=== PATIENT | male | born 1995 | race Caucasian/White ===

== ENCOUNTER 2018-03-23 07:30 | Emergency (ER) | payer OTHER ==
[2018-03-23] MEDS: NS 1,000 ML IV (08:10)
[2018-03-23] MEDS: MORPHINE 4 MG/ML 1ML VIAL/SYRINGE (J2270) IV ×2 (08:11→08:46)
[2018-03-23 08:17] LABS: BASO % 0.5 % (0.0-1.0); EOS % 0.3 % (0.0-3.0); HEMATOCRIT 48.3 % (42.0-52.0); HEMOGLOBIN 16.8 g/dl (13.5-17.5); IMMATURE GRANULOCYTE % 0.3 % (0-3.0); LYMPH # 1.6 10^3/uL (1.5-6.5); LYMPH % 24.8 % (24.0-44.0); MEAN CORPUSCULAR HGB CONC 34.8 g/dl (32.0-36.5); MEAN CORPUSCULAR VOLUME 83.4 fl (80.0-96.0); MONO # 0.4 10^3/uL (0.0-0.8); MONO % 6.5 % (0.0-5.0); NEUTROPHILS # 4.4 10^3/uL (1.8-7.7); NEUTROPHILS % 67.6 % (36.0-66.0); PLATELET COUNT, AUTOMATED 242 10^3/uL (150-450); RED BLOOD COUNT 5.79 10^6/uL (4.30-6.10); RED CELL DISTRIBUTION WIDTH 12.3 % (11.5-14.5); WHITE BLOOD COUNT 6.5 10^3/uL (4.0-10.0)
[2018-03-23 08:35] LABS: ALBUMIN 4.2 GM/DL (3.2-5.2); ALBUMIN/GLOBULIN RATIO 1.24 (1.00-1.93); ALKALINE PHOSPHATASE 72 U/L (45-117); ALT/SGPT 27 U/L (12-78); AMYLASE 38 U/L (25-115); ANION GAP 9 MEQ/L (8-16); AST/SGOT 20 U/L (7-37); BILIRUBIN,DIRECT < 0.1 MG/DL (0.0-0.2); BILIRUBIN,TOTAL 0.3 MG/DL (0.2-1.0); BLOOD UREA NITROGEN 13 MG/DL (7-18); CALCIUM LEVEL 9.8 MG/DL (8.5-10.1); CARBON DIOXIDE LEVEL 27 MEQ/L (21-32); CHLORIDE LEVEL 104 MEQ/L (98-107); CREATININE FOR GFR 1.38 MG/DL (0.70-1.30); GLOMERULAR FILTRATION RATE > 60.0 (>60); GLUCOSE, FASTING 90 MG/DL (70-100); LIPASE 91 U/L (73-393); POTASSIUM SERUM 4.3 MEQ/L (3.5-5.1); SODIUM LEVEL 140 MEQ/L (136-145); TOTAL PROTEIN 7.6 GM/DL (6.4-8.2)
[2018-03-23] MEDS ORDERED: ISOVUE-370 76% 100ML VIAL (Q9967) As Ordered (09:32)
[2018-03-23] MEDS: KETOROLAC 30 MG/ML VIAL (J1885) IV (10:37)
== END 2018-03-23 10:49 | disposition home or self-care (01) ==
LOC: M ED 07:30
DX: R10.11 Right upper quadrant pain (principal); G89.18 Other acute postprocedural pain; R00.0 Tachycardia, unspecified
CPT/HCPCS: J2270

== ENCOUNTER → 2018-04-06 | Outpatient (CLI) | payer OTHER | LOC: M RAD 07:01 | DX: M26.623 Arthralgia of bilateral temporomandibular joint (principal) | CPT/HCPCS: 70480 ==

== ENCOUNTER 2018-10-03 19:29 | Emergency (ER) | payer OTHER ==
[~2018-10-03] VITALS: Ht 177.8 cm; Wt 71.7 kg
[~2018-10-03 19:29] MED LIST: NAPR-837 PO
--- NOTE | 2018-10-03 21:57 | REPVR ---
EXAM: CT Maxillofacial Without Contrast EXAM DATE/TIME: 10/03/2018 8:44 PM CLINICAL HISTORY: 23 years old, male; Injury or trauma; Fall; Initial encounter; Concussion /head injury; Without loss of consciousness; Additional info: Jaw wired shut, fell and hit face TECHNIQUE: Imaging protocol: Axial computed tomography images of the face without intravenous contrast. Coronal and sagittal reformatted images were created and reviewed. Radiation optimization: All CT scans at this facility use at least one of these dose optimization techniques: automated exposure control; mA and/or kV adjustment per patient size (includes targeted exams where dose is matched to clinical indication); or iterative reconstruction. COMPARISON: No relevant prior studies available. FINDINGS: Orbits: No acute intraorbital abnormality. Globes intact. Sinuses: Normal. No air-fluid levels. Bones/joints: Mildly displaced fracture of the right mandibular ramus. Soft tissues: Mild soft tissue swelling at the fracture site. IMPRESSION: Mildly displaced fracture of the right mandibular ramus. Electronically signed by: Dakota Boucher On 10/03/2018 21:56:49 PM
[2018-10-03] MEDS ORDERED: ONDANSETRON 4MG/2ML VIAL (J2405) IV ONE (22:00)
[2018-10-03] MEDS ORDERED: HYDR1SOL PO (22:10)
[2018-10-03] MEDS: MORPHINE 4 MG/ML 1ML VIAL/SYRINGE (J2270) IV PRN ×2 (22:34→23:35)
[2018-10-03] MEDS ORDERED: KETOROLAC 30 MG/ML VIAL (J1885) IV ONE (23:15)
[2018-10-04 00:52] VITALS: BP 124/66
== END 2018-10-04 00:54 | disposition home or self-care (01) ==
LOC: M ED 19:29
DX: R68.84 Jaw pain (principal); S02.641A Fracture of ramus of right mandible, initial encounter for closed fracture; W10.9XXA Fall (on) (from) unspecified stairs and steps, initial encounter; Y92.9 Unspecified place or not applicable; Y93.9 Activity, unspecified; Y99.9 Unspecified external cause status
CPT/HCPCS: 70486; 96374; 96375; 96376; 99284; J1885; J2270; J2405

== ENCOUNTER → 2019-02-07 | Outpatient (REF) | payer OTHER ==
[~2019-02-07] MED LIST changes: +HYDR1SOL PO
[2019-02-07 14:10] LABS: SEMEN APPEARANCE OPAQUE (OPAQUE); SEMEN VISCOSITY LIQUID (LIQUID); SEMEN VOLUME 1.7 ml (2.0-5.0); SPERM CONCENTRATION 41.1 M/ml (>=15.0); WBC CONCENTRATION <=1 M/ml (<=1 M/ml)
== END ==
LOC: M LAB REF 13:41
PROVIDERS: ATTEND Obstetrics & Gynecology
DX: Z31.41 Encounter for fertility testing (principal)

== ENCOUNTER 2019-03-16 06:17 | Emergency (ER) | payer OTHER ==
[~2019-03-16] VITALS: Ht 177.8 cm; Wt 83.6 kg
[2019-03-16] MEDS ORDERED: IBUP200C25 PO (06:22)
[2019-03-16] MEDS ORDERED: KETOROLAC 60 MG/2 ML VIAL (J1885) IM ONE (07:00)
[2019-03-16] MEDS ORDERED: diazePAM 5 MG TAB PO ONE (07:00)
[2019-03-16] MEDS ORDERED: CYCL10TA PO (07:46)
[2019-03-16] MEDS ORDERED: KETO10TAB PO (07:46)
[2019-03-16 07:56] VITALS: BP 115/75
== END 2019-03-16 08:02 | disposition home or self-care (01) ==
LOC: M ED 06:17
DX: M54.32 Sciatica, left side (principal); G89.29 Other chronic pain; M62.830 Muscle spasm of back; Z90.49 Acquired absence of other specified parts of digestive tract
CPT/HCPCS: 96372; 99283; J1885

== ENCOUNTER 2019-03-22 21:22 | Emergency (ER) | payer OTHER ==
[~2019-03-22] VITALS: Ht 177.8 cm; Wt 83.2 kg
[~2019-03-22 21:22] MED LIST changes: +CYCL10TA PO; +IBUP200C25 PO; +KETO10TAB PO
[2019-03-22] MEDS ORDERED: KETOROLAC 30 MG/ML VIAL (J1885) IM ONE (21:45)
[2019-03-22 23:15] VITALS: BP 132/82
== END 2019-03-22 23:16 | disposition home or self-care (01) ==
LOC: M ED 21:22
DX: M54.32 Sciatica, left side (principal); M62.830 Muscle spasm of back; Z90.49 Acquired absence of other specified parts of digestive tract
CPT/HCPCS: 96372; 99283; J1885